=== PATIENT | female | born 1995 | race Caucasian/White ===

== ENCOUNTER 2016-11-12 14:18 | Emergency (ER) | payer SELFPAY ==
[2016-11-12 14:20] VITALS: BP 187/108; PULSE 89; RESP 16; TEMP 97.7; TEMP 98.8; O2SAT 99
--- NOTE | 2016-11-12 17:24 | PD ---
HPI Chief Complaint: Skin Problem Time Seen by Provider: 17:24 Travel History International Travel<30 days: No Contact w/Intl Traveler<30days: No Traveled to known affect area: No History of Present Illness HPI 21-year-old female presents to the emergency department requesting suture removal from left hand. Patient states that 3 weeks ago she was seen at [facility] for left hand infection and was transferred to [facility] to have incision and drainage of abscess by hand surgeon Dr. Bang. States that she was in the hospital for 5 days and was told to have sutures removed 1 week after surgery. States that she has been unable to follow-up with the hand surgeon [place] due to transportation and financial difficulties. She was discharged with a prescription of amoxicillin which she has finished. States that she had an appointment with the hand surgeon 2 days ago however new that she would be unable to see him so she called him 3 days ago and he told her to go to the nearest hospital to have her sutures removed and to schedule follow-up with him. She states that she does still have pain in the hand describes as a sharp shooting pain. States she has been washing the wound with soap and water. States that it does sometimes bleed. Denies any purulent drainage, redness, swelling, fever, chills. Denies . No other complaints. PFSH Past Medical History Medical History: Denies Significant Hx ?: Not LMP: 10/19/16 : 0 Para: 0 Past Surgical History Oral Surgery: Yes (wisdom teeth extracted) Tonsillectomy: Yes Other Surgery: Yes (left hand) Social History Alcohol Use: No Tobacco Use: Yes (1/2 ppd) Substance Use: No (past pot use) Allergies-Medications (Allergen,Severity, Reaction): Coded Allergies: No Known Allergies (Unverified , 11/12/16) Reported Meds & Prescriptions Reported Meds & Active Scripts Active No Active Prescriptions or Reported Medications Review of Systems Except as stated in HPI: all other systems reviewed are Neg Physical Exam Narrative GENERAL: Well-nourished and well-developed pleasant female patient in no acute distress who is nontoxic appearing. SKIN: Warm and dry. HEAD: Normocephalic and atraumatic. EYES: No injection, drainage, or hyphema noted. PERRLA. EOMI. ENT: No nasal drainage noted. Oropharynx is clear. NECK: Supple and the trachea is midline. CARDIOVASCULAR: Regular rate and rhythm. RESPIRATORY: Breath sounds are equal bilaterally with no accessory muscle use, wheezing, rhonchi, or crackles. EXTREMITY: Left hand with healed linear incision across dorsal aspect with sutures in place. There is a central scab approximately 1 x 1 cm which I unroofed partially and it caused slight bleeding, otherwise the wound is healed well. No erythema, discharge, drainage, fluctuance. Full range of motion in all joints. Normal opposition of thumb. Distal extremity neurovascularly intact with intact two point discrimination. NEUROLOGICAL: Awake, alert, and oriented. Normal speech and gait. Cranial nerves are grossly intact. Data Data Last Documented VS Vital Signs Date Time Temp Pulse Resp B/P Pulse Ox O2 Delivery O2 Flow Rate FiO2 11/12/16 14:20 98.8 89 16 187/108 99 MDM Medical Decision Making Medical Screen Exam Complete: Yes Emergency Medical Condition: Yes Differential Diagnosis Suture removal versus wound recheck versus wound infection versus poorly healing wound Narrative Course 21-year-old female presents to the emergency department for suture removal s/p hand surgery for abscess I&D 3 weeks ago. Patient is afebrile, vital signs are stable. The left hand appears to be healed well with the exception of a central small area that is scabbed over. All sutures are removed without difficulty, 7 and total. Patient tolerated well. We'll place the patient on clindamycin for potential wound infection due to this poorly healing central area. She is instructed to follow-up with her hand surgeon as soon as possible. Patient verbalizes understanding and agreement with treatment plan. Diagnosis Primary Impression: Encounter for removal of sutures Additional Impression: Wound disruption Qualified Code: T81.30XA - Wound disruption, initial encounter Referrals: Hand Surgeon Patient Instructions: Acute Wound Care (ED), General Instructions Additional Instructions: Keep wound clean and dry. Take medication as prescribed with food and a full glass of water. Follow-up with your hand surgeon. Return to the ED for any acute worsening of symptoms. Med/Other Pt SpecificInfo: Prescription(s) given Scripts No Active Prescriptions or Reported Meds Disposition: 01 DISCHARGE HOME Condition: Stable Katheryn Lama Nov 12, 2016 17:24
[2016-11-12] MEDS ORDERED: CLIN1CAP5 PO (17:53)
== END 2016-11-12 19:09 | disposition home or self-care (01) ==
LOC: NEPD 14:18
DX: Z48.02 Encounter for removal of sutures (principal); T81.30XA Disruption of wound, unspecified, initial encounter; F17.200 Nicotine dependence, unspecified, uncomplicated
CPT/HCPCS: 99283

== ENCOUNTER 2017-04-12 19:47 | Emergency (ER) | payer SELFPAY ==
[~2017-04-12] VITALS: Ht 160 cm; Wt 90.0 kg
[~2017-04-12 19:47] MED LIST: CLIN150C14 PO
[2017-04-12 20:19] VITALS: BP 168/106; PULSE 101; RESP 18; TEMP 98.5; O2SAT 98
[2017-04-12] MEDS ORDERED: ONDANSETRON ODT 4 MG TAB PO ONE (20:30)
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
[2017-04-12] MEDS ORDERED: ACETAMINOPHEN 325 MG TAB PO ONE (21:15)
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
[2017-04-12] MEDS ORDERED: KETOROLAC TROMETHAMINE 60 MG/2 ML (IM) VIAL IM ONE (22:00)
[2017-04-12] MEDS ORDERED: AMOXICILLIN (TRIHYDRATE) 500 MG CAP PO ONE (22:00)
[2017-04-12] MEDS ORDERED: AMOX500T PO (22:07)
[2017-04-12] MEDS ORDERED: TYLE325T PO (22:07)
== END 2017-04-12 22:10 | disposition home or self-care (01) ==
LOC: NEDAMB 19:47 → NEPD 22:10
DX: T76.11XA Adult physical abuse, suspected, initial encounter (principal); J32.9 Chronic sinusitis, unspecified; F17.210 Nicotine dependence, cigarettes, uncomplicated
CPT/HCPCS: 70450; 70486; 72125; 84703; 96372; 99285; J1885

== ENCOUNTER 2017-09-08 20:59 | Emergency (ER) | payer SELFPAY ==
[~2017-09-08] VITALS: Ht 160 cm; Wt 122.7 kg
[~2017-09-08 20:59] MED LIST changes: +AMOX500T PO; +TYLE325T PO
[2017-09-08 21:01] VITALS: BP 152/107; PULSE 100; RESP 22; TEMP 98.1; O2SAT 100
--- NOTE | 2017-09-08 21:35 | PD ---
HPI Chief Complaint: Laceration/Skin Injury Time Seen by Provider: 21:32 Travel History International Travel<30 days: No Contact w/Intl Traveler<30days: No Traveled to known affect area: No History of Present Illness HPI 22-year-old female who is right-handed presents emergency department for evaluation of laceration sustained to the left wrist. Patient states she was staying in a hotel when she leaned against a glass window that broke. She sustained 2 lacerations to the left anterior wrist. The left ulnar artery appears to be injured. Patient presents by EVAC with tourniquet in place. She reports severe pain of the hand. States she has chronic history of numbness in the fourth and fifth digit secondary to a trauma and surgery in the past. She also reports inability to straighten the left fifth digit which is also chronic for her. She has no other symptoms to report at this time. She is not up-to- date on her tetanus status. PFSH Past Medical History Medical History: Denies Significant Hx Tetanus Vaccination: Unknown Influenza Vaccination: No ?: Not LMP: 08/17/2017 : 0 Para: 0 Past Surgical History Oral Surgery: Yes (wisdom teeth extracted) Tonsillectomy: Yes Other Surgery: Yes (left hand) Social History Alcohol Use: Yes Tobacco Use: Yes (1/2 ppd) Substance Use: No (past pot use) Allergies-Medications (Allergen,Severity, Reaction): Coded Allergies: No Known Allergies (Unverified Adverse Reaction, Unknown, 09/08/17) Reported Meds & Prescriptions Reported Meds & Active Scripts Active Ibuprofen 800 Mg Tab 800 Mg PO Q8H PRN Keflex (Cephalexin) 500 Mg Cap 500 Mg PO Q6H 5 Days Tylenol (Acetaminophen) 325 Mg Tab 650 Mg PO Q6H PRN Amoxicillin 500 Mg Tab 1,000 Mg PO Q8HR 5 Days Clindamycin (Clindamycin HCl) 150 Mg Cap 300 Mg PO Q6H 10 Days Review of Systems Except as stated in HPI: all other systems reviewed are Neg Physical Exam Narrative GENERAL: Obese female patient, tearful, but in no acute distress. She appears nontoxic. SKIN: Focused skin assessment warm/dry. 2 cm laceration on the left anterior wrist over the radial artery. Bleeding is controlled. There is a 1-1/2 cm laceration over the ulnar aspect of the left wrist. Bleeding is controlled with tourniquet in place however blood does squirt from the area when tourniquet is released. 1 cm laceration on the dorsal aspect of the left hand. Bleeding is controlled. HEAD: Atraumatic. Normocephalic. EYES: Pupils equal and round. No scleral icterus. No injection or drainage. ENT: No nasal bleeding or discharge. Mucous membranes pink and moist. NECK: Trachea midline. No JVD. CARDIOVASCULAR: Regular rate and rhythm. No murmur appreciated. RESPIRATORY: No accessory muscle use. Clear to auscultation. Breath sounds equal bilaterally. GASTROINTESTINAL: Abdomen soft, non-tender, nondistended. Hepatic and splenic margins not palpable. MUSCULOSKELETAL: No obvious deformities. No clubbing. No cyanosis. No edema. Patient can open and closed the digits of the affected extremity. Alterations in sensation left fourth and fifth digits which is chronic. Patient is unable to fully straighten the left fifth digit which is also chronic. NEUROLOGICAL: Awake and alert. No obvious cranial nerve deficits. Motor grossly within normal limits. Normal speech. PSYCHIATRIC: Appropriate mood and affect; insight and judgment normal. Data Data Last Documented VS Vital Signs Date Time Temp Pulse Resp B/P (MAP) Pulse Ox O2 Delivery O2 Flow Rate FiO2 09/08/17 21:01 98.1 100 22 152/107 (122) 100 Orders Orders Cephalexin (Keflex) (09/08/17 21:45) Ed Discharge Order (09/08/17 21:36) Tetanus/Diphtheria Tox Adult (Tetanus/Di (09/08/17 22:00) MDM Medical Decision Making Medical Screen Exam Complete: Yes Emergency Medical Condition: Yes Medical Record Reviewed: Yes Differential Diagnosis Laceration superficial versus deep versus abrasion versus avulsion Narrative Course 22-year-old female presents emergency department for evaluation of laceration sustained to the left wrist after she states she fell through a window. Patient has tourniquet in place. It is removed by my attending to identify with the bleeding is. Manual blood pressure cuff is placed. Dr. Sequeira repairs the arterial aspect internally of this injury. I then approximated the lacerations. Patient does tolerate this well. The extremity remains neurovascularly intact. Patient was counseled on care. She is updated on her tetanus. She was provided prescription and where to pick it up for [facility]. She refuses to take this with her and tells me she needs to go. Procedures Procedure Narrative LACERATION LOCATION: Left wrist LENGTH: 2 cm NUMBER OF STITCHES/ZACKARY: 3 sutures REPAIR: The area of the laceration was prepped with Betadine and sterilely draped. The laceration was infiltrated with 1% lidocaine with epinephrine. The wound was copiously irrigated and explored without evidence of foreign body , tendon injury or neurovascular injury. The wound was closed using 3-0 Prolene. This was a single layer repair. A sterile dressing was applied. The patient was advised to keep the dressing clean and dry. Patient tolerated the procedure well. LACERATION LOCATION: Left wrist LENGTH: 1.5 cm NUMBER OF STITCHES/ZACKARY: 3 sutures REPAIR: The area of the laceration was prepped with Betadine and sterilely draped. The laceration was infiltrated with 1% lidocaine with epinephrine. The wound was copiously irrigated and explored without evidence of foreign body , tendon injury or neurovascular injury. The wound was closed using 3-0 Prolene. This was a single layer repair. A sterile dressing was applied. The patient was advised to keep the dressing clean and dry. Patient tolerated the procedure well. LACERATION LOCATION: Left dorsal hand LENGTH:1 cm NUMBER OF STITCHES/ZACKARY: 1 sutures REPAIR: The area of the laceration was prepped with Betadine and sterilely draped. The laceration was infiltrated with 1% lidocaine with epinephrine. The wound was copiously irrigated and explored without evidence of foreign body , tendon injury or neurovascular injury. The wound was closed using 3-0 Prolene. This was a single layer repair. A sterile dressing was applied. The patient was advised to keep the dressing clean and dry. Patient tolerated the procedure well. Diagnosis Primary Impression: Laceration of hand with complication Qualified Codes: S61.412A - Laceration without foreign body of left hand, initial encounter Additional Impression: Ulnar artery injury Qualified Codes: S55.002A - Unspecified injury of ulnar artery at forearm level, left arm, initial encounter Referrals: Hand Surgeon Primary Care Physician Patient Instructions: Care For Your Stitches (DC), General Instructions Additional Instructions: KEEP THE AREA CLEAN AND DRY YOU MAY SHOWER FOLLOW UP WITH YOUR PRIMARY CARE PROVIDER SUTURES ARE TO BE REMOVED IN 10 DAYS; THIS CAN BE DONE IN THE EMERGENCY DEPT OR AT YOUR PRIMARY CARE PROVIDERS OFFICE RETURN IN 24 HOURS FOR RE-EVALUATION RETURN TO ED IMMEDIATELY WITH ACUTE WORSENING OF SYMPTOMS Med/Other Pt SpecificInfo: Prescription(s) given Scripts Ibuprofen (Ibuprofen) 800 Mg Tab 800 MG PO Q8H Y for Pain/Inflammation, #30 TAB 0 Refills Prov: Mayra Rios 09/08/17 Cephalexin (Keflex) 500 Mg Cap 500 MG PO Q6H for Infection for 5 Days, #20 CAP 0 Refills Prov: Mayra Rios 09/08/17 Disposition: 01 DISCHARGE HOME Condition: Stable Mayra Rios September 08, 2017 21:35
[2017-09-08] MEDS ORDERED: CEPH-460 PO (21:37)
[2017-09-08] MEDS ORDERED: IBUP1TAB7 PO (21:37)
[2017-09-08] MEDS ORDERED: CEPHALEXIN MONOHYDRATE 500 MG CAP PO ONE (21:45)
[2017-09-08] MEDS ORDERED: TETANUS/DIPHTHERIA TOXOID ADULT 0.5 ML VIAL IM ONE (22:00)
== END 2017-09-08 22:06 | disposition home or self-care (01) ==
LOC: NEPE 20:59
DX: S61.412A Laceration without foreign body of left hand, initial encounter (principal); S61.512A Laceration without foreign body of left wrist, initial encounter; F17.200 Nicotine dependence, unspecified, uncomplicated; Z23 Encounter for immunization; W25.XXXA Contact with sharp glass, initial encounter
CPT/HCPCS: 12002; 90471; 90714

== ENCOUNTER 2017-09-20 09:38 | Emergency (ER) | payer SELFPAY ==
[~2017-09-20] VITALS: Ht 160 cm; Wt 100.0 kg
[~2017-09-20 09:38] MED LIST changes: +CEPH-460 PO; +IBUP1TAB7 PO
[2017-09-20 09:48] VITALS: BP 133/73; PULSE 87; RESP 18; TEMP 98.6; O2SAT 100
--- NOTE | 2017-09-20 10:47 | PD ---
HPI Chief Complaint: Wound/Suture/Staple Re-Check Time Seen by Provider: 10:21 Travel History International Travel<30 days: No Contact w/Intl Traveler<30days: No Traveled to known affect area: No History of Present Illness HPI 22-year-old female presents to the emergency department for evaluation suture removal to the left hand/wrist. Patient was seen 10 days ago in the emergency department. It appears she had a radial artery injury, but bleeding was controlled. The patient states that she is unable to completely extend her fourth and fifth digits of her left hand. She states this has been ongoing since the injury. She reports minimal movement at the MCP and PIP joints and none at the DIP joints. Patient states she was told she might have a nerve injury while she was here. Patient denies any fevers, chills, erythema. No drainage. Moderate severity. PFSH Past Medical History ?: Not : 0 Para: 0 Past Surgical History Oral Surgery: Yes (wisdom teeth extracted) Tonsillectomy: Yes Other Surgery: Yes (left hand) Social History Alcohol Use: Yes Tobacco Use: Yes (1/2 ppd) Substance Use: No (past pot use) Allergies-Medications (Allergen,Severity, Reaction): Coded Allergies: No Known Allergies (Unverified Adverse Reaction, Unknown, 09/08/17) Reported Meds & Prescriptions Reported Meds & Active Scripts Active Ibuprofen 800 Mg Tab 800 Mg PO Q8H PRN Keflex (Cephalexin) 500 Mg Cap 500 Mg PO Q6H 5 Days Tylenol (Acetaminophen) 325 Mg Tab 650 Mg PO Q6H PRN Amoxicillin 500 Mg Tab 1,000 Mg PO Q8HR 5 Days Clindamycin (Clindamycin HCl) 150 Mg Cap 300 Mg PO Q6H 10 Days Review of Systems Except as stated in HPI: all other systems reviewed are Neg Physical Exam Narrative GENERAL: Well-nourished, well-developed female patient afebrile., SKIN: Focused skin assessment warm/dry. Patient has healing laceration to the volar wrist on the radial and ulnar side as well as a healing laceration to the dorsal hand. HEAD: Normocephalic. Atraumatic EYES: No scleral icterus. No injection or drainage. NECK: Supple, trachea midline. No JVD or lymphadenopathy. CARDIOVASCULAR: Regular rate and rhythm without murmurs, gallops, or rubs. RESPIRATORY: No accessory muscle use. MUSCULOSKELETAL: No cyanosis, or edema. Patient cannot fully extend her left fourth and fifth digits. She has minimal movement at the MCP joint and PIP joints, no movement at DIP joints. She can flex digits. BACK: Nontender without obvious deformity. No CVA tenderness. Data Data Last Documented VS Vital Signs Date Time Temp Pulse Resp B/P (MAP) Pulse Ox O2 Delivery O2 Flow Rate FiO2 09/20/17 09:48 98.6 87 18 133/73 (93) 100 MDM Medical Decision Making Medical Screen Exam Complete: Yes Emergency Medical Condition: Yes Medical Record Reviewed: Yes Differential Diagnosis Suture removal versus dehiscence versus tendon laceration versus nerve injury Narrative Course 22-year-old female presents to the emergency department for suture removal. On exam, she cannot fully extend her left fourth and fifth digits. The laceration to the medial volar wrist slightly dehisced upon suture removal. I discussed the case with my attending physician, Dr. Gautam. He recommends ulnar gutter splint and mandatory referral to hand surgery. When I returned from talking to my attending physician, I saw the patient walking out. She states that she has an appointment and cannot stay. I was unable to Steri-Strip the wound or place a fiberglass splint. She is aware that I was unable to complete treatment for her. I did notify her that she was leaving AGAINST MEDICAL ADVICE. She verbalizes understanding that she is leaving AMA. I will place mandatory referral for hand surgery. AMA: The risks of leaving against medical advice without further evaluation treatment were discussed with the patient. The patient indicated understanding of risks and appeared to have the capacity to make this decision. Diagnosis Primary Impression: Left against medical advice Additional Impression: Wound dehiscence Disposition: 07 AGAINST MEDICAL ADVICE Tita Ramos September 20, 2017 10:47
== END 2017-09-20 10:52 | disposition left against medical advice (07) ==
LOC: NEPK 09:38
DX: T81.30XA Disruption of wound, unspecified, initial encounter (principal)
CPT/HCPCS: 99281

== ENCOUNTER 2017-09-22 12:43 | Emergency (ER) | END 2017-09-22 14:56 | disposition home or self-care (01) | DX: S61.212D Laceration without foreign body of right middle finger without damage to nail, subsequent encounter (principal); X58.XXXD Exposure to other specified factors, subsequent encounter; F17.210 Nicotine dependence, cigarettes, uncomplicated ==